=== PATIENT | male | born 1950 | race Caucasian/White ===

== ENCOUNTER → 2016-06-28 | Outpatient (CLI) | payer BC ==
[~2016-06-28] MED LIST: LIALDA 1.2 GM1.2 GM PO; MULTIPLE VITAMI1 CAP PO; NORCO 325 MG-7.1 TAB PO; PRILOSEC 20MG20 MG PO; ULTRAM 50MG TAB50 MG PO; ZOCOR 20MG20 MG PO; ZOLOFT 100MG100 MG PO
== END ==
LOC: COL.RAD 10:20
DX: M25.512 Pain in left shoulder (principal)
CPT/HCPCS: Q9967

== ENCOUNTER → 2016-07-10 | Outpatient (CLI) | payer BC | LOC: COL.RAD 06:57 | DX: N28.1 Cyst of kidney, acquired (principal) ==

== ENCOUNTER → 2016-07-23 | Outpatient (CLI) | payer BC | LOC: COL.RAD 11:29 | DX: R10.11 Right upper quadrant pain (principal); R93.2 Abnormal findings on diagnostic imaging of liver and biliary tract | CPT/HCPCS: A9537; J2270 ==

== ENCOUNTER 2016-08-03 05:55 | Day surgery (SDC) | payer BC ==
[~2016-08-03] VITALS: Ht 175.3 cm; Wt 104.5 kg
[2016-08-03] VITALS (7 sets, daily range): BP systolic 125–151; BP diastolic 75–86; PULSE 50–77; TEMP 97.9
[~2016-08-03 05:55] MED LIST changes: -NORCO 325 MG-7.1 TAB PO; -ULTRAM 50MG TAB50 MG PO
[2016-08-03] MEDS ORDERED: ULTRAM 50MG TAB50 MG PO (06:01)
[2016-08-03 06:39] LABS: BASO % 0.1 % (0.0-2.0); EOS # 0.1 (0.0-0.7); EOS % 0.5 % (0-4.0); GRAN # 11.7 (1.4-6.5); HEMATOCRIT 43.1 % (42.0-52.0); HEMOGLOBIN 15.2 g/dl (13.5-18.0); LYMPH # 0.8 (1.2-3.4); MEAN CELL VOLUME 84 fl (80.0-100.0); MEAN CORPUSCULAR HEMOGLOBIN 30 pg (27.0-31.0); MEAN CORPUSCULAR HGB CONC 35 g/dl (33.0-37.0); MEAN PLATELET VOLUME 9.8 fl (7.4-10.4); MONO # 0.7 (0.1-0.6); MONO % 5.1 % (1.7-9.3); PLATELET COUNT 171 K/mm3 (130-400); RED BLOOD COUNT 5.13 M/mm3 (4.20-5.60); REDCELL DISTRIBUTION WIDTH-CV 12.6 % (11.5-14.5); WHITE BLOOD COUNT 13.3 K/mm3 (4.8-10.8)
[2016-08-03 06:52] LABS: ADJUSTED CALCIUM 9.7 mg/dL (8.4-10.2); ALBUMIN 4.3 gm/dL (3.5-5.0); BILIRUBIN,TOTAL 0.8 mg/dL (0.0-1.0); C-REACTIVE PROTEIN 0.7 mg/dL (0.0-0.9); CALCIUM 9.9 mg/dL (8.4-10.2); CREATININE, serum 0.9 mg/dL (0.66-1.25); TOTAL PROTEIN 7.7 gm/dL (6.4-8.2)
[2016-08-03 07:18] LABS: PH 5 (5-8); SQUAMOUS EPITHELIAL 0-2 /hpf; URINE APPEARANCE Hazy; URINE BACTERIA None Seen /hpf; URINE BILIRUBIN Negative (NEGATIVE); URINE BLOOD Negative (NEGATIVE); URINE COLOR Yellow; URINE GLUCOSE Negative (NEGATIVE); URINE KETONE Trace (NEGATIVE); URINE RBC 0-2 /hpf; URINE UROBILINOGEN Negative (NEGATIVE)
[2016-08-03] MEDS ORDERED: NORCO 325 MG-7.1 TAB PO (15:09)
== END 2016-08-03 16:37 | disposition home or self-care (01) ==
LOC: COL.ER 05:55 → SURG 08:59 → COL.ER 08:59 → SURG 11:45 → SDCO 11:45
PROVIDERS: Emergency Medicine
DX: K80.12 Calculus of gallbladder with acute and chronic cholecystitis without obstruction (principal); K81.0 Acute cholecystitis
CPT/HCPCS: OP; J0690; J1100; J1170; J1885; J2405; J2704; J2710; J2765; J3010; J7030; J7120; Q9967

== ENCOUNTER → 2018-10-27 | Outpatient (CLI) | payer MEDICARE, OTHER ==
[~2018-10-27] MED LIST changes: +NORCO 325 MG-7.1 TAB PO; +ULTRAM 50MG TAB50 MG PO
== END ==
LOC: COL.VAS 11:05
DX: R42 Dizziness and giddiness (principal)

== ENCOUNTER → 2019-02-10 | Outpatient (CLI) | payer MEDICARE, OTHER | LOC: COL.VAS 13:19 | DX: I49.9 Cardiac arrhythmia, unspecified (principal); I51.7 Cardiomegaly ==

== ENCOUNTER → 2019-02-18 | Outpatient (CLI) | payer MEDICARE, OTHER ==
[2019-02-18 06:34] VITALS: BP 150/75; PULSE 68
[2019-02-18 07:46] VITALS: BP 145/85; PULSE 78
[2019-02-18 07:48] VITALS: BP 133/57; PULSE 92
[2019-02-18 07:52] VITALS: BP 137/66; PULSE 84
== END ==
LOC: COL.CARD 06:24
DX: I49.3 Ventricular premature depolarization (principal)
CPT/HCPCS: A9500; J2785

== ENCOUNTER → 2019-04-05 | Outpatient (CLI) | payer MEDICARE, OTHER | LOC: COL.CARD 11:06 | DX: I47.2 Ventricular tachycardia (principal) ==

== ENCOUNTER → 2020-05-08 | Outpatient (CLI) | payer MEDICARE, OTHER | LOC: COL.RAD 09:27 | DX: K21.9 Gastro-esophageal reflux disease without esophagitis (principal); K44.9 Diaphragmatic hernia without obstruction or gangrene ==

== ENCOUNTER → 2020-07-07 | Outpatient (CLI) | payer MEDICARE, OTHER ==
[~2020-07-07] VITALS: Ht 175.3 cm; Wt 101.5 kg
[2020-07-07 13:05] VITALS: BP 139/90; PULSE 82
[2020-07-07 14:05] VITALS: BP 140/97; PULSE 71
== END ==
LOC: COL.RAD 12:44
DX: M48.02 Spinal stenosis, cervical region (principal)
CPT/HCPCS: J1100

== ENCOUNTER → 2020-07-26 | Outpatient (CLI) | payer MEDICARE, OTHER ==
--- NOTE | 2020-07-24 14:35 | NUR ---
COVID INJECTION ON 07/12/20; NEXT VACC 08/09/20
[2020-07-26 09:51] VITALS: BP 156/85; PULSE 76
[2020-07-26 11:00] VITALS: BP 155/83; PULSE 68
== END ==
LOC: COL.RAD 09:22
DX: M48.02 Spinal stenosis, cervical region (principal)
CPT/HCPCS: J1100

== ENCOUNTER → 2020-11-01 | Outpatient (CLI) | payer MEDICARE, OTHER | LOC: MHCPAIN 10:42 | DX: M47.812 Spondylosis without myelopathy or radiculopathy, cervical region (principal); M54.2 Cervicalgia | CPT/HCPCS: G0463 ==

== ENCOUNTER → 2020-11-23 | Outpatient (CLI) | payer MEDICARE, OTHER | LOC: MHCPAIN 09:10 | DX: M47.812 Spondylosis without myelopathy or radiculopathy, cervical region (principal); M54.2 Cervicalgia ==

== ENCOUNTER → 2020-11-29 | Outpatient (CLI) | payer MEDICARE, OTHER | LOC: MHCPAIN 08:18 | DX: M47.812 Spondylosis without myelopathy or radiculopathy, cervical region (principal); M54.2 Cervicalgia; R51.9 Headache, unspecified; G89.29 Other chronic pain | CPT/HCPCS: G0463 ==

== ENCOUNTER → 2020-12-07 | Outpatient (CLI) | payer MEDICARE, OTHER | LOC: MHCPAIN 08:37 | DX: M47.812 Spondylosis without myelopathy or radiculopathy, cervical region (principal); M54.2 Cervicalgia ==

== ENCOUNTER → 2020-12-11 | Outpatient (CLI) | payer MEDICARE, OTHER | LOC: MHCPAIN 09:43 | DX: M47.812 Spondylosis without myelopathy or radiculopathy, cervical region (principal); M54.2 Cervicalgia; R51.9 Headache, unspecified | CPT/HCPCS: G0463 ==

== ENCOUNTER → 2021-01-04 | Outpatient (CLI) | payer MEDICARE, OTHER | LOC: MHCPAIN 11:44 | DX: M47.812 Spondylosis without myelopathy or radiculopathy, cervical region (principal); M54.2 Cervicalgia | CPT/HCPCS: J1100; J2250; J3010 ==

== ENCOUNTER → 2021-02-27 | Outpatient (CLI) | payer MEDICARE, OTHER | LOC: MHCPAIN 09:14 | DX: M47.812 Spondylosis without myelopathy or radiculopathy, cervical region (principal); M79.18 Myalgia, other site; M54.2 Cervicalgia; R51.9 Headache, unspecified | CPT/HCPCS: G0463; J1040 ==

== ENCOUNTER → 2021-07-03 | Outpatient (CLI) | payer MEDICARE, OTHER | LOC: MHCPAIN 09:02 | DX: M47.812 Spondylosis without myelopathy or radiculopathy, cervical region (principal); M54.2 Cervicalgia; R51.9 Headache, unspecified | CPT/HCPCS: G0463 ==